=== PATIENT | female | born 1960 | race Caucasian/White ===

== ENCOUNTER → 2019-06-24 | Outpatient (CLI) | payer BC ==
[~2019-06-24] MED LIST: ALLEGRA180 MG PO; CALCIUM CITRAT200 MG PO; CARDI-OMEGA1000 MG PO; HYDROXYCHLOROQ200 MG PO; LEVAQUIN 750MG750 M1 PO; METRONIDAZOLE500 MG PO; PHENERGAN 25 TA25 MG PO; PHENERGAN25 MG RC; PROBIOTIC FORMU1 CAP PO; SINGULAIR10 MG PO; VITAMIN C500 MG PO; VITAMIN D 400400 IU PO
== END ==
LOC: MC.RAD 15:00
DX: Z12.31 Encounter for screening mammogram for malignant neoplasm of breast (principal)